=== PATIENT | male | born 1965 | race African-American/Black ===

== ENCOUNTER 2016-06-07 16:12 | Emergency (ER) | payer MEDICARE, MEDICAID ==
[2016-06-07 20:19] LABS: Urine Bacteria Absent (Absent); Urine Bilirubin Negative (Negative); Urine Glucose Negative (Negative); Urine Nitrite Negative (Negative)
[2016-06-07] MEDS ORDERED: Ketorolac INJ* 60 MG/2 ML VIAL IM ONE (20:59)
--- NOTE | 2016-06-07 21:36 | ED ---
Stanley Mccracken Aidan, scribed for Rasta Nowak MD on 06/07/16 at 2102 . Complex/Multi-Sys Presentation - HPI Summary HPI Summary: 50 y/o male presents to the ED with a complaint of acute, constant, moderate, diffuse body aches that began yesterday evening at 2330. Today, he vomited once. Pt denies any fever. - History Of Current Complaint Chief Complaint: EDAbdPain Time Seen by Provider: 06/07/16 20:51 Hx Obtained From: Patient Onset/Duration: Sudden Onset, Lasting Hours, Still Present Timing: Constant Severity Currently: Moderate Severity Initially: Moderate Aggravating Factor(s): unknown Alleviating Factor(s): unknown Associated Signs And Symptoms: Positive: Vomiting, Other - diffuse body aches - Allergies/Home Medications Allergies/Adverse Reactions: Allergies Allergy/AdvReac Type Severity Reaction Status Date / Time No Known Allergies Allergy Verified 04/21/14 10:32 PMH/Surg Hx/FS Hx/Imm Hx Endocrine/Hematology History: Denies: Hx Anticoagulant Therapy, Hx Diabetes Cardiovascular History: Reports: Hx Congestive Heart Failure, Hx Hypertension, Other Cardiovascular Problems/Disorders - cardiomyopathy Respiratory History: Reports: Hx Sleep Apnea - severe JENNA, current CPAP user Denies: Hx Asthma History: Reports: Hx Acute Renal Failure Neurological History: Reports: Other Neuro Impairments/Disorders - aphasia Infectious Disease History: No Infectious Disease History: Denies: Hx Hepatitis, Traveled Outside the in Last 30 Days - Family History Known Family History: Positive: Hypertension - Social History Occupation: Disabled Lives: With Family Alcohol Use: None Substance Use Type: Reports: None Smoking Status (MU): Never Smoked Tobacco Review of Systems Constitutional: Negative Eyes: Negative ENT: Negative Cardiovascular: Negative Respiratory: Negative Positive: Vomiting. Negative: Abdominal Pain, Diarrhea, Nausea Genitourinary: Negative Positive: Arthralgia - diffuse body aches. Negative: Decreased ROM, Edema Skin: Negative Neurological: Negative Psychological: Normal All Other Systems Reviewed And Are Negative: Yes Physical Exam Triage Information Reviewed: Yes Vital Signs On Initial Exam: Initial Vitals Temp Pulse Resp BP Pulse Ox 98.4 F 80 18 136/90 99 06/07/16 17:10 06/07/16 17:10 06/07/16 17:10 06/07/16 17:10 06/07/16 17:10 Vital Signs Reviewed: Yes Appearance: Positive: No Pain Distress, Obese Skin: Positive: Warm Head/Face: Positive: Normal Head/Face Inspection Eyes: Positive: ERIN ENT: Positive: Hearing grossly normal Neck: Positive: Supple Respiratory/Lung Sounds: Positive: Breath Sounds Present Cardiovascular: Positive: RRR Abdomen Description: Positive: Nontender, Soft Bowel Sounds: Positive: Present Musculoskeletal: Positive: Strength/ROM Intact Neurological: Positive: Sensory/Motor Intact, Alert, Oriented to Person Place, Time Diagnostics - Vital Signs Vital Signs Temp Pulse Resp BP Pulse Ox 06/07/16 19:30 99.9 F 78 22 133/80 98 06/07/16 18:31 98.4 F 79 20 130/67 100 06/07/16 17:10 98.4 F 80 18 136/90 99 - Laboratory Lab Results: Lab Results 06/07/16 Range/Units 19:30 Urine Color Yellow Urine Appearance Clear Urine pH 5.0 (5-9) Ur Specific [place] 1.013 (1.010-1.030) Urine Protein Negative (Negative) Urine Ketones Negative (Negative) Urine Blood Negative (Negative) Urine Nitrate Negative (Negative) Urine Bilirubin Negative (Negative) Urine Urobilinogen Negative (Negative) Ur Leukocyte Esterase Trace H (Negative) Urine WBC (Auto) 1+(6-10/hpf) H (Absent) Urine RBC (Auto) Absent (Absent) Urine Bacteria Absent (Absent) Urine Glucose Negative (Negative) Result Diagrams: 06/07/16 23:15 06/07/16 23:15 Lab Statement: Any lab studies that have been ordered have been reviewed, and results considered in the medical decision making process. Re-Evaluation - Re-Evaluation First Eval Change: Improved Complex Multi-Symp Course/Dx - Diagnoses Provider Diagnoses: Viral syndrome Discharge - Discharge Plan Condition: Stable Disposition: HOME Discharge Disposition Comment: Please follow up with your primary care physician. Patient Education Materials: Viral Syndrome (ED) Referrals: Max Reaves MD [Primary Care Provider] - The documentation as recorded by the Stanley barboza Aidan accurately reflects the service I personally performed and the decisions made by me, Rasta Nowak MD.
[2016-06-07 23:29] LABS: Hematocrit 40 % (42-52); Mean Corpuscular HGB Conc 33 g/dl (31-36); Mean Corpuscular Hemoglobin 26 pg (27-31); Mean Corpuscular Volume 78 fL (80-94); Mean Platelet Volume 7 um3 (7.4-10.4); Red Blood Count 5.08 10^6/ul (4.0-5.4); Red Cell Distribution Width 15 % (10.5-15); White Blood Count 8.7 10^3/ul (3.5-10.8)
[2016-06-07 23:43] LABS: Albumin 4.5 g/dL (3.2-5.2); BUN/Creatinine Ratio 10.6 (8-20); C Reactive Protein 13.68 mg/L (< 5.00); EGFR African American 73.5 (>60); EGFR Non-African American 57.2 (>60); Globulin 3.7 g/dL (2-4); Potassium 3.3 mmol/L (3.5-5.0); Total Bilirubin 0.6 mg/dL (0.2-1.0); Total Protein 8.2 g/dL (6.4-8.9)
[2016-06-08 00:13] VITALS: BP 128/81
== END 2016-06-08 00:14 | disposition home or self-care (01) ==
LOC: ED 16:12
DX: B34.9 Viral infection, unspecified (principal)
CPT/HCPCS: 36415; 80053; 81003; 81015; 85025; 86140; 87086; 87502; 96372; 99282; J1885

== ENCOUNTER 2017-07-16 11:41 | Emergency (ER) | payer MEDICARE, MEDICAID ==
[2017-07-16] MEDS ORDERED: Acetaminophen TAB* 325 MG PO ONE (12:30)
[2017-07-16] MEDS ORDERED: Lidocaine PATCH 5%* 1 PATCH TRANSDERM ONE (12:31)
--- NOTE | 2017-07-16 12:35 | ED ---
Back Pain - HPI Summary HPI Summary: Patient here with abrupt onset right lower back pain while trying to remove carpet from the floor. He reports as he was tugging, he felt acute pain in the lower back on Friday. He seemed to be okay the rest of the day however his pain was worse on Friday. He tried some Tylenol with some relief - has not tried anything else since. He reports this pain is in the right lower back and goes into his lateral and posterior left leg. He denies numbness, tingling, weakness and no change in bowel or bladder habits. He feels worse lying flat - better in a seated flexed position - History of Current Complaint Chief Complaint: EDBackInjuryPain Stated Complaint: BACK PAIN Time Seen by Provider: 07/16/17 12:21 Hx Obtained From: Patient Pain Intensity: 10 - Allergies/Home Medications Allergies/Adverse Reactions: Allergies Allergy/AdvReac Type Severity Reaction Status Date / Time No Known Allergies Allergy Verified 04/21/14 10:32 PMH/Surg Hx/FS Hx/Imm Hx Previously Healthy: Yes Endocrine/Hematology History: Denies: Hx Anticoagulant Therapy, Hx Diabetes Cardiovascular History: Reports: Hx Congestive Heart Failure - takes diuretic ( lasix? + K), Hx Hypertension - lisinopril(?), Other Cardiovascular Problems/ Disorders - cardiomyopathy Respiratory History: Reports: Hx Sleep Apnea - severe JENNA, current CPAP user Denies: Hx Asthma History: Reports: Hx Acute Renal Failure Neurological History: Reports: Hx CVA, Other Neuro Impairments/Disorders - aphasia Infectious Disease History: No Infectious Disease History: Denies: Hx Hepatitis, Traveled Outside the [place] in Last 30 Days - Family History Known Family History: Positive: Hypertension - Social History Lives: With Family Alcohol Use: None Hx Substance Use: No Substance Use Type: Reports: None Hx Tobacco Use: No Smoking Status (MU): Never Smoked Tobacco Review of Systems Negative: incontinence Positive: Arthralgia, Myalgia, Decreased ROM Skin: Negative Neurological: Negative Negative: Weakness, Paresthesia, Numbness Psychological: Normal All Other Systems Reviewed And Are Negative: Yes Physical Exam Triage Information Reviewed: Yes Vital Signs On Initial Exam: Initial Vitals Temp Pulse Resp BP Pulse Ox 98.5 F 78 20 126/74 97 07/16/17 11:55 07/16/17 11:55 07/16/17 11:55 07/16/17 11:55 07/16/17 11:55 Vital Signs Reviewed: Yes Appearance: Positive: Well-Appearing, Pain Distress - appears okay a rest, sitting on edge of bed but has pain w/ transitions, Obese Skin: Positive: Warm, Skin Color Reflects Adequate Perfusion, Dry ENT: Positive: Hearing grossly normal Neck: Positive: Nontender Respiratory/Lung Sounds: Positive: Breath Sounds Present Cardiovascular: Positive: Pulses are Symmetrical in both Upper and Lower Extremities Musculoskeletal: Positive: Strength/ROM Intact, Pain @ - Rt lumbar spinous pp, Rt QL m and SI joint TTP; + SLR on Rt Neurological: Positive: Sensory/Motor Intact, Alert, Oriented to Person Place, Time Psychiatric: Positive: Normal - concerned but calm and cooperative Diagnostics - Vital Signs Vital Signs Temp Pulse Resp BP Pulse Ox 07/16/17 11:55 98.5 F 78 20 126/74 97 - Laboratory Lab Statement: Any lab studies that have been ordered have been reviewed, and results considered in the medical decision making process. Back Pain Course/Dx - Course Course Of Treatment: Pt here w/ RT lumbar pain s/p acute pulling injury 4 days ago. Some relief w/ tylenol but has been trying to continue to work and pain has been persisting. Has radicular pain w/o neuro deficits. He also admits to taking an REYNOLD inhibitor for HTN along w/ h/o CVA and chart reveals kidney failure so NSAID's were avoided in tx plan today. He is also driving so muscle relaxer avoided. He's had relief w/ acetaminophen so gave a substantial dose along with heat and lidoderm pain patch. He is in stable condition pending CT lumbar spine at time of sign out to Licha Pepper PA-C. - Diagnoses Provider Diagnoses: Lumbar pain Discharge - Sign-Out/Discharge Documenting (check all that apply): Sign-Out Patient Signing out patient TO: Licha Ramsay - Discharge Plan Condition: Stable Referrals: Max Reaves MD [Primary Care Provider] - - Billing Disposition and Condition Condition: STABLE
--- NOTE | 2017-07-16 14:04 | RAD ---
INDICATION: Back and leg pain. COMPARISON: Lumbar spine October 24, 2012 TECHNIQUE: Noncontrast axial source images was performed from the thoracolumbar junction to the sacrum. Coronal and and sagittal reformatted images were generated. FINDINGS: Vertebrae: There is no fracture or acute focal bony lesion. Alignment: The lumbar vertebrae are normally aligned. Central Canal: There is a broad-based, right lateral, calcified disc protrusion with a small osteophyte at L4-L5 which is likely impingement upon the L4 nerve root. The canal and left foramina are widely patent There are no other significant CT abnormalities of the central canal or foramina. MR imaging is a more sensitive method to evaluate the canal and foramina. Intervertebral disc spaces: The disc spaces are maintained. Soft tissues: The paravertebral soft tissues are normal. Other: None IMPRESSION: FAR RIGHT LATERAL DISC PROTRUSION AND OSTEOPHYTE RESULTING IN RIGHT L4-L5 FORAMINAL COMPROMISE WITH PROBABLE L4 NERVE ROOT IMPINGEMENT.
[2017-07-16 15:14] VITALS: BP 128/72
--- NOTE | 2017-07-16 15:50 | PN ---
Progress Note - Progress Note Date of Service: 07/16/17 Note: Patient signed out from Coty Sahni, PAC. Results of the CT obtained which shows: IMPRESSION: FAR RIGHT LATERAL DISC PROTRUSION AND OSTEOPHYTE RESULTING IN RIGHT L4-L5 FORAMINAL COMPROMISE WITH PROBABLE L4 NERVE ROOT IMPINGEMENT. Patient appears to be in no acute distress at this time. Prednisone 50 mg 5 days prescribed. Flexeril 10 mg twice a day as needed for any muscular spasms. He is given a referral to neurosurgery for further workup and evaluation. Vital signs stable on discharge. He is okay with plan and discharge and voices no concerns at this time. Disposition: Home Condition: Stable
== END 2017-07-16 15:11 | disposition home or self-care (01) ==
LOC: ED 11:41
DX: M54.5 Low back pain (principal); I11.0 Hypertensive heart disease with heart failure; I50.9 Heart failure, unspecified; G47.33 Obstructive sleep apnea (adult) (pediatric); M51.26 Other intervertebral disc displacement, lumbar region
CPT/HCPCS: 72131; 99282; A9270-GY

== ENCOUNTER 2018-01-03 13:45 | Emergency (ER) | payer MEDICARE, MEDICAID ==
--- NOTE | 2018-01-03 14:26 | ED ---
Lower Extremity - HPI Summary HPI Summary: Patient presents with right posterior ankle pain after stepping unevenly off a curb earlier today. He reports he has sharp pain in the back of his ankle worse with plantar flexion and weightbearing. He's not been able to weight- bear since the injury. Denies numbness, tingling, weakness. He has not tried anything prior to arrival or his discomfort. He denies taking any steroids or fluoroquinolones - may take a statin however he is not sure of all of his meds mentions he takes some "heart meds". Denies fever, chills and no preceding skin issues or infection in this area. No previous injury here. - History of Current Complaint Chief Complaint: EDExtremityLower Stated Complaint: RT LEG PAIN Time Seen by Provider: 01/03/18 14:22 Hx Obtained From: Patient Pain Intensity: 8 - Allergies/Home Medications Allergies/Adverse Reactions: Allergies Allergy/AdvReac Type Severity Reaction Status Date / Time No Known Allergies Allergy Verified 07/16/17 13:54 PMH/Surg Hx/FS Hx/Imm Hx Previously Healthy: Yes Endocrine/Hematology History: Denies: Hx Anticoagulant Therapy, Hx Diabetes Cardiovascular History: Reports: Hx Congestive Heart Failure - takes diuretic ( lasix? + K), Hx Hypertension - lisinopril(?), Other Cardiovascular Problems/ Disorders - cardiomyopathy Respiratory History: Reports: Hx Sleep Apnea - severe JENNA, current CPAP user Denies: Hx Asthma History: Reports: Hx Acute Renal Failure Musculoskeletal History: Denies: Hx Arthritis Neurological History: Reports: Hx CVA, Other Neuro Impairments/Disorders - aphasia Infectious Disease History: No Infectious Disease History: Denies: Hx Hepatitis, Traveled Outside the [place] in Last 30 Days - Family History Known Family History: Positive: Hypertension - Social History Lives: With Family Alcohol Use: None Hx Substance Use: No Substance Use Type: Reports: None Hx Tobacco Use: No Smoking Status (MU): Never Smoked Tobacco Review of Systems Constitutional: Negative Negative: Fever, Chills Positive: no symptoms reported Positive: Arthralgia. Negative: Decreased ROM, Edema Skin: Negative Neurological: Negative Psychological: Normal All Other Systems Reviewed And Are Negative: Yes Physical Exam Triage Information Reviewed: Yes Vital Signs On Initial Exam: Initial Vitals Temp Pulse Resp BP Pulse Ox 97.8 F 88 16 137/86 97 01/03/18 13:53 01/03/18 13:53 01/03/18 13:53 01/03/18 13:53 01/03/18 13:53 Vital Signs Reviewed: Yes Appearance: Positive: Well-Appearing, No Pain Distress - at rest, Obese Skin: Positive: Warm, Skin Color Reflects Adequate Perfusion, Dry - no erythema , no ecchymosis, no skin breakdown ENT: Positive: Hearing grossly normal Respiratory/Lung Sounds: Positive: Breath Sounds Present Cardiovascular: Positive: Pulses are Symmetrical in both Upper and Lower Extremities Musculoskeletal: Positive: Strength/ROM Intact, Pain @ - worse w/ plantarflexion and palpation over achilles tendon; (-) Freed test; heel is NTTP Neurological: Positive: Normal, Sensory/Motor Intact, Alert, Oriented to Person Place, Time Psychiatric: Positive: Normal Diagnostics - Vital Signs Vital Signs Temp Pulse Resp BP Pulse Ox 01/03/18 13:53 97.8 F 88 16 137/86 97 - Laboratory Lab Statement: Any lab studies that have been ordered have been reviewed, and results considered in the medical decision making process. Lower Extremity Course/Dx - Course Course Of Treatment: ankle XR: soft tissue swelling - no fx. RICE and cructhes. F/u w/ PCP in 1 week. Danger s/sx reviewed if worse sooner - Diagnoses Provider Diagnoses: Right ankle sprain Discharge - Sign-Out/Discharge Documenting (check all that apply): Patient Departure - Discharge Plan Condition: Stable Disposition: HOME Patient Education Materials: Ankle Sprain (ED), Crutch Instructions (ED) Forms: *Work Release Referrals: Max Reaves MD [Primary Care Provider] - Additional Instructions: REST, ICE, ELEVATE AND APPLY REYNOLD WRAP IN THE MORNING - REMOVE BEFORE BED USE CRUTCHES TO WALK - AVOID WEIGHT BEARING UNTIL SEEN BY PCP at the end of the week - call Friday to schedule an appointment for Friday Additionally you may take acetaminophen for pain *IF IN THE MEANTIME YOU DEVELOP NUMBNESS, WEAKNESS OR SIGNIFICANT SWELLING DESPITE REST AND ICE, RETURN TO ED - Billing Disposition and Condition Condition: STABLE Disposition: Home
--- NOTE | 2018-01-03 14:46 | RAD ---
INDICATION: Right ankle injury. TECHNIQUE: 3 views of the right ankle were obtained. FINDINGS: Soft tissue swelling is noted along the anterolateral aspect of the ankle. No fracture is seen. Joint spaces appear maintained. IMPRESSION: SOFT TISSUE SWELLING, NO FRACTURE IS SEEN.
[2018-01-03 16:25] VITALS: BP 120/76
== END 2018-01-03 16:24 | disposition home or self-care (01) ==
LOC: ED 13:45